=== PATIENT | male | born 1960 | race Two or more races ===

== ENCOUNTER 2018-01-21 07:28 | Day surgery (SDC) | payer BC ==
[~2018-01-21] VITALS: Ht 165.1 cm; Wt 73.0 kg
[2018-01-21] VITALS (9 sets, daily range): BP systolic 117–133; BP diastolic 9–91
--- NOTE | 2018-01-21 06:09 | Anethesia Preoperative Eval ---
Anesthesia Pre-op PMH/ROS General Date of Evaluation: Jan 21, 2018 Time of Evaluation: 06:09 Anesthesiologist: willem ASA Score: ASA 3 Mallampati Score Class I : Soft palate, uvula, fauces, pillars visible Class II: Soft palate, uvula, fauces visible Class III: Soft palate, base of uvula visible Class IV: Only hard plate visible Mallampati Classification: Class II Surgeon: amanda Diagnosis: colon screening Surgical Procedure: colonoscopy Anesthesia History: none Family History: no anesthesia problems Allergies: Coded Allergies: No Known Allergies (Unverified , 01/21/18) Medications: see eMAR Patient NPO?: Yes Past Medical History Cardiovascular: Reports: HTN Pulmonary: Reports: WADE Gastrointestinal/Genitourinary: Reports: GERD HEENT: Reports: other PSxH Narrative: right wrist fx repair, tonsillectoy, rhinoplasty, septoplasty Anesthesia Pre-op Phys. Exam Physician Exam Last Vital Signs Date Time Temp Pulse Resp B/P (MAP) Pulse Ox O2 Delivery O2 Flow Rate FiO2 01/21/18 08:12 97.5 71 18 132/87 97 Room Air Constitutional: NAD Neurologic: CN 2-12 intact Cardiovascular: RRR Respiratory: CTA Gastrointestinal: S/NT/ND Airway Exam Mallampati Score: Class II MO: full Neck: flexible TMD: 2fb ROM: full Anesthesia Pre-op A/P Risk Assessment & Plan Assessment: asa3 Plan: mac Status Change Before Surgery: No Pre-Antibiotics Drug: Audrey Upton MD Jan 21, 2018 06:09
[2018-01-21] MEDS ORDERED: VITAMIN D1000 UNI1 ORAL (08:15)
[2018-01-21] MEDS ORDERED: ATORVASTATIN CA20 MG ORAL (08:15)
[2018-01-21] MEDS ORDERED: LR 1000ml ONE (08:30)
[2018-01-21] MEDS ORDERED: Lidocaine 1% MPF 10mg/ml 5ml ONE (08:30)
[2018-01-21] MEDS ORDERED: Propofol 200mg/20ml IV ONE (08:30)
--- NOTE | 2018-01-21 08:41 | Pre-Procedure Note/Attestation ---
Pre-Procedure Note/Attestation Complete Prior to Procedure Planned Procedure: not applicable Procedure Narrative: ED / colon Indications for Procedure Pre-Operative Diagnosis: GERD, Screen, Occ BRB Attestation I attest that I discussed the nature of the procedure; its benefits; risks and complications; and alternatives (and the risks and benefits of such alternatives ), prior to the procedure, with the patient (or the patient's legal asset protection representative). I attest that, if there was a reasonable possibility of needing a blood transfusion, the patient (or the patient's legal asset protection representative) was given the [facility] standardized written summary, pursuant to the [employer] Blood Safety Act ([place] Health and Safety Code # 1645, as amended). I attest that I re-evaluated the patient just prior to the surgery and that there has been no change in the patient's H&P, except as documented below: Theodora Rodriguez MD Jan 21, 2018 08:41
--- NOTE | 2018-01-21 08:41 | Short Stay Surgery H&P ---
History of Present Illness History of Present Illness Chief Complaint See attached H&P HPI Migue Barriga is a 57 year old male who was admitted on for ED/Colon Medication History Scheduled Atorvastatin Calcium* (Atorvastatin Calcium*), 20 MG ORAL BEDTIME, (Reported) Cholecalciferol (Vitamin D3)* (Vitamin D*), 2,000 UNITS ORAL DAILY, (Reported) Physical Exam Vital Signs Last Vital Signs Date Time Temp Pulse Resp B/P (MAP) Pulse Ox O2 Delivery O2 Flow Rate FiO2 01/21/18 08:12 97.5 71 18 132/87 97 Room Air Plan Attestation Are the patient's medical conditions optimized for surgery? Theodora Rodriguez MD Jan 21, 2018 08:41
--- NOTE | 2018-01-21 09:44 | Immediate Post-Op Evaluation ---
Immediate Post-Op Evalulation Immediate Post-Op Evalulation Procedure: egd/colonoscopy/bx Date of Evaluation: Jan 21, 2018 Time of Evaluation: 09:42 IV Fluids: 500ml lr Blood Products: none Estimated Blood Loss: negligible Blood Pressure Systolic: 117 Blood Pressure Diastolic: 73 Pulse Rate: 75 Respiratory Rate: 18 O2 Sat by Pulse Oximetry: 99 Temperature (Fahrenheit): 97.8 Pain Score (1-10): 0 Nausea: No Vomiting: No Complications none Patient Status: awake, reacts, patent Hydration Status: adequate Drug: Audrey Upton MD Jan 21, 2018 09:44
[2018-01-21] MEDS ORDERED: LR 1000ml 1,000 ML IVLG SCH (09:46)
--- NOTE | 2018-01-21 09:46 | 48 Hour Post Anesthesia Eval ---
Post Anesthesia Evaluation Procedure: egd/colonoscopy/bx Date of Evaluation: Jan 21, 2018 Time of Evaluation: 09:45 0: 75 Pulse Rate: 78 Respiratory Rate: 18 Temperature (Fahrenheit): 97.8 O2 Sat by Pulse Oximetry: 100 Airway: patent Nausea: No Vomiting: No Pain Intensity: 0 Hydration Status: adequate Cardiopulmonary Status: stable Mental Status/LOC: patient returned to baseline Post-Anesthesia Complications: none Follow-up care needed: N/A Audrey Roberts MD Jan 21, 2018 09:46
[2018-01-21] MEDS ORDERED: fentaNYL 100 mcg/2 mL IV PRN (10:00)
[2018-01-21] MEDS ORDERED: Atropine Inj 1mg/10ml Syr IV PRN (10:00)
[2018-01-21] MEDS ORDERED: Midazolam 2mg/2ml Inj IVP PRN (10:00)
[2018-01-21] MEDS ORDERED: DiphenhydrAMINE 50mg/ml Inj IVP PRN (10:00)
--- NOTE | 2018-01-21 10:37 | Endoscopy Procedure Note ---
Endoscopy Procedure Note General Indication for Procedure: JOEL, Screen Procedures Performed: EGD, colonoscopy Operative Findings/Diagnosis: GERD, Tics, sig polyp Specimen: yes Pt Tolerated Procedure Well: Yes Estimated Blood Loss: none Anesthesia Anesthesiologist: Shawn Sandoval Anesthesia: MAC Medications Medication Given: see anesthesia record Inserted Devices Implant(s) used?: No GI Core Measures 50 yrs or older w/o bx or poly: No 10yrs. F/U not recommended: No If not recommended, why?: Above average risk 10 yrs. F/U needed: No 18 years or older w/prev. colo: Yes <3yrs. since last colonoscopy: No Med reason:<3 yrs.: System Reason:<3 yrs.: Last colonoscopy >= to 3yrs: Yes Theodora Rodriguez MD Jan 21, 2018 10:37
--- NOTE | 2018-01-21 10:38 | Brief Operative Note ---
Immediate Post Operative Note Operative Note Chief Complaint: GERD, screen Pre-op Diagnosis: GERD, Screen, Occ BRB Procedure: EGD, Colon, Bx, Bx Post-op Diagnosis: GERD, Tics, sig polyp Surgeon: amanda Anesthesiologist: Shawn Sandoval Anesthesia: MAC Specimen: yes Complications: none Condition: stable Fluids: recorded Estimated Blood Loss: none Drains: none Implant(s) used?: No Theodora Rodriguez MD Jan 21, 2018 10:38
--- NOTE | 2018-01-22 12:45 | Operative Note - Dictated ---
DATE OF OPERATION: 01/21/2018 PROCEDURE: Upper gastrointestinal endoscopy with biopsy as well as colonoscopy with biopsy. SURGEON: Theodora Rodriguez M.D. ANESTHESIA: Please see the separate anesthesiologist notes for details. PRE-ENDOSCOPIC DIAGNOSES: 1. Symptoms of gastroesophageal reflux. 2. Need for screening colonoscopy. POST-ENDOSCOPIC DIAGNOSES: 1. Mild linear erosion at the gastroesophageal junction, status post biopsy. 2. Moderate sigmoid diverticulosis. 3. Diminutive polyp in the sigmoid colon at 20 cm, status post biopsy. DESCRIPTION OF PROCEDURE: The procedure, its risks, indications, alternatives, and possible complications were explained to the patient and informed consent was obtained. The patient was then sedated in the left lateral decubitus position and a diagnostic upper endoscope was introduced through the oropharynx . PRE-ENDOSCOPIC DIAGNOSES: 1. Gastroesophageal reflux. 2. Need for screening colonoscopy. POST-ENDOSCOPIC DIAGNOSES: 1. Small linear erosion in the lower esophagus consistent with mild gastroesophageal reflux, status post biopsy. 2. Left-sided [id number] diverticulosis. 3. Diminutive colon polyp in the sigmoid area, status post biopsy removal. DESCRIPTION OF PROCEDURE: The procedure, its risks, indications, alternatives, and possible complications were explained to the patient and informed consent was obtained. The patient was then sedated in the left lateral decubitus position. A diagnostic upper endoscope was introduced through the oropharynx and advanced to the duodenum without difficulty. The endoscope was then gradually withdrawn and the mucosa examined carefully. Examination of the upper gastrointestinal mucosa revealed mild reflux with a small linear erosion in the lower esophagus, which was biopsied. The biopsies of the antrum were also sent to pathology for review. The rectal exam was then done and the colonoscope was introduced into the rectum and advanced to the cecum. The cecum was identified by the appearance of the ileocecal valve. The colonoscope was gradually withdrawn. The mucosa examined carefully. [id number] left-sided diverticulosis was identified. There was a diminutive polyp at 20 cm in the rectum and the sigmoid colon, which was removed with biopsy forceps. The colonoscope was removed and the patient was sent to recovery in good condition. COMPLICATIONS: None. RECOMMENDATIONS: 1. Follow up biopsy results. 2. High-fiber diet. 3. Reflux precautions. 4. . 5. Outpatient followup. Theodora Rodriguez M.D. DR: SANDIP JOB#: [id number] CC:
== END 2018-01-21 11:00 | disposition home or self-care (01) ==
LOC: GAS 07:28
DX: Z12.11 Encounter for screening for malignant neoplasm of colon (principal); K21.9 Gastro-esophageal reflux disease without esophagitis; K57.90 Diverticulosis of intestine, part unspecified, without perforation or abscess without bleeding; K63.5 Polyp of colon; I10 Essential (primary) hypertension
CPT/HCPCS: 43239; 45380; J2704; 94003; 94150